=== PATIENT | female | born 1980 | race Caucasian/White ===

== ENCOUNTER → 2021-01-19 13:38 | Outpatient (BNVA) | payer OTHER, MEDICAID, SELFPAY | PROVIDERS: PCP Internal Medicine; Visit Provider Internal Medicine Cardiovascular Disease ==

== ENCOUNTER → 2021-04-12 09:11 | Outpatient (BNVA) | payer MEDICAID, SELFPAY | PROVIDERS: PCP Internal Medicine; Visit Provider Internal Medicine Cardiovascular Disease | DX: I20.1 Angina pectoris with documented spasm (principal); R00.2 Palpitations | CPT/HCPCS: 93005; 99212 ==

== ENCOUNTER 2022-08-05 04:37 | Emergency (ER) | payer OTHER, SELFPAY ==
[2022-08-05 04:39] VITALS: BP 144/68; BP 160/94; PULSE 61; PULSE 68; RESP 22; TEMP 36.7; O2SAT 97; O2SAT 99; BMI 46.6
--- NOTE | 2022-08-05 05:52 | ED_ITS ---
HPI - Back Pain/Injury General Chief Complaint: Back Pain/Injury Stated Complaint: Lower Right Side Back Pain Time Seen by Provider: 08/05/22 05:47 Source: patient Mode of arrival: EMS Limitations: no limitations History of Present Illness HPI Narrative: Patient comes emergency room complaining of right lower back cramping. Patient states that approximately 2 weeks ago, she ?twisted the wrong way? and since then she has been having right lower back pain. Patient denies radiation to the lower extremity, denies urinary/fecal incontinence/retention. Denies falling. Related Data Home Medications Medication Instructions Recorded Confirmed levothyroxine 25 mcg capsule 25 mcg PO DAILY 01/19/21 04/12/21 sertraline 50 mg tablet (Zoloft) 50 mg PO DAILY 01/19/21 04/12/21 amlodipine 5 mg tablet 5 mg PO DAILY 04/12/21 04/12/21 buspirone 5 mg tablet 5 mg PO TID 04/12/21 04/12/21 calcium carbonate 600 mg-vitamin 1 tab PO BID 04/12/21 04/12/21 D3 20 mcg (800 unit) tablet clonazepam 1 mg tablet 1 mg PO DAILY PRN anxiety 04/12/21 04/12/21 famotidine 20 mg tablet 20 mg PO BID 04/12/21 04/12/21 hydroxyzine HCl 25 mg tablet 25 mg PO TID PRN anxiety 04/12/21 04/12/21 mycophenolate mofetil 500 mg tablet 1,000 mg PO BID 04/12/21 04/12/21 prednisone 10 mg tablet 30 mg PO DAILY 04/12/21 04/12/21 Previous Rx's Medication Instructions Recorded diltiazem HCl 180 mg capsule,24 180 mg PO DAILY #30 caps 12/05/21 hr,extended release isosorbide mononitrate 30 mg 30 mg PO DAILY #90 tabs 02/12/22 tablet,extended release 24 hr cyclobenzaprine 10 mg tablet 10 mg PO TID PRN muscle spasm #7 08/05/22 tabs ketorolac 10 mg tablet 10 mg PO .B.i.d. PRN pain #7 tabs 08/05/22 Allergies Allergy/AdvReac Type Severity Reaction Status Date / Time morphine AdvReac Intermediate hypotension Verified 04/12/21 09:18 Review of Systems Review of Systems: Constitutional : No Weight loss, No Fever, No Chills, No Night Sweats, No Fatigue, No Malaise ENT/Mouth : No Hearing loss, No Ear Pain, No Nasal Congestion, No Sinus Pain, No Hoarseness, No sore throat, No Rhinorrhea, No Swallowing Difficulty Eyes: No Eye Pain, No Swelling, No Redness, No Foreign Body, No Discharge, No Vision Changes Cardiovascular : No Chest Pain, No SOB, No Dyspnea on Exertion, No Orthopnea, No Edema, No Palpitations Respiratory : No Cough, No Sputum, No Wheezing, No Smoke Exposure, No Dyspnea Gastrointestinal : No Nausea, No Vomiting, No Diarrhea, No Constipation, No abdominal Pain, No Hematochezia, No Melena Genitourinary : no irregular bleeding, No Dysuria, No Urinary Frequency, No Hematuria, No Urinary Incontinence, No Urgency, No Flank Pain, No Urinary Flow Changes, No Hesitancy Musculoskeletal : Complaining of right lower back pain/spasm in No joint pain, No Myalgias, No Joint Swelling Skin : No Skin Lesions, No rash Neuro : No Weakness, No Numbness, No Paresthesias, No Loss of Consciousness, No Dizziness, No Headache Psych : No Anxiety/Panic, No Depression, No SI/HI/AH/VH, No Social Issues, Heme/Lymph: No Bruising, No Bleeding,No Lymphadenopathy Endocrine : No Polyuria, No Polydipsia, No Temperature Intolerance PMFSH Past Medical History Medical History Anxiety Arthritis delivery delivered Coronary artery spasm Depression Heart palpitations Hypothyroid Surgical History History of cardiac cath History of tonsillectomy Family History Family History Maternal Grandfather Heart attack Social History Social History Alcohol intake: never Patient Tobacco Use Status: Former Tobacco user Smoked in Last 30 Days: No Use of substances other than those prescribed or required for medical reasons: No Advance Directives: No Advance Directives Information Provided: No Patient : No Physical Exam Vital Signs: Vital Signs: Last Vital Signs Temp 98.2 F 08/05/22 06:24 Pulse 50 08/05/22 06:24 Resp 17 08/05/22 06:24 BP 147/67 H 08/05/22 06:24 Pulse Ox 98 08/05/22 06:24 O2 Del Method Room Air 08/05/22 06:24 BMI result Body Mass Index 46.6 Const: Other: Appearance: Alert. Oriented X3. No acute distress. Eyes: Pupils equal, round and reactive to light. ENT: Pharynx normal. Neck: Normal inspection. Neck supple. No lymph nodes noted. No crepitus CVS: Normal heart rate and rhythm. Pulses normal. Normal S1 and S2 Respiratory: No respiratory distress. Breath sounds normal. No Wheezing. No rales Abdomen: Soft and nontender. No rigidity. No distention. Back: Pain to palpation over the paraspinal muscles on the right side, no flank pain Skin: Skin warm and dry. Normal skin color. Normal skin turgor. Extremities: No lower extremity edema. No Lacerations. No Rash Neuro: Oriented X 3. No motor deficit. No sensory deficit. Moving all ext remities. No slurred speech. CN 2 through 12 grossly intact Psych: calm, cooperative, normal affect Medications Administered Discontinued Medications Generic Name Dose Route Start Last Admin Trade Name Freq PRN Reason Stop Dose Admin Diazepam 2 mg 08/05/22 05:51 08/05/22 06:05 Diazepam 2 Mg Tablet PO 08/05/22 05:52 2 mg ONCE ONE Administration Ketorolac Tromethamine 60 mg 08/05/22 05:51 08/05/22 06:04 Ketorolac Tromethamine 60 Mg/2 Ml Vial IM 08/05/22 05:52 60 mg ONCE ONE Administration Medical Decision Making Medical Decision Making MDM Narrative: -discussed the physical exam with the patient, pain likely musculoskeletal. -urinalysis pending to rule out UTI/pyelo, not suspected at this time. Patient has no UTI symptoms, no fever chills, no flank pain or suprapubic pain. -patient given IM Toradol and p.o. Valium -sign-out given to Dr. Dia Discharge Plan Discharge Clinical Impression: Back spasm Patient Disposition: Home, Self-Care Instructions: Muscle Spasm (ED) Additional Instructions: Please follow-up with your primary care physician tomorrow. You may need physical therapy. If you have any worsening or new symptoms, please return to the emergency room or call 911 Prescriptions: New ketorolac 10 mg tablet 10 mg PO .B.i.d. PRN (Reason: pain) Qty: 7 0RF cyclobenzaprine 10 mg tablet 10 mg PO TID PRN (Reason: muscle spasm) Qty: 7 0RF No Action diltiazem HCl 180 mg capsule,extended release 24 hr 180 mg PO DAILY Qty: 30 5RF isosorbide mononitrate 30 mg tablet extended release 24 hr 30 mg PO DAILY Qty: 90 3RF sertraline [Zoloft] 50 mg tablet 50 mg PO DAILY levothyroxine 25 mcg capsule 25 mcg PO DAILY amlodipine 5 mg tablet 5 mg PO DAILY prednisone 10 mg tablet 30 mg PO DAILY buspirone 5 mg tablet 5 mg PO TID calcium carbonate-vitamin D3 600 mg-20 mcg (800 unit) tablet 1 tab PO BID clonazepam 1 mg tablet 1 mg PO DAILY PRN (Reason: anxiety) famotidine 20 mg tablet 20 mg PO BID mycophenolate mofetil 500 mg tablet 1,000 mg PO BID hydroxyzine HCl 25 mg tablet 25 mg PO TID PRN (Reason: anxiety)
[2022-08-05] MEDS: Ketorolac Tromethamine 60 MG/2 ML VIAL IM (06:04)
[2022-08-05] MEDS: diazePAM 2 MG TABLET PO (06:05)
--- NOTE | 2022-08-05 06:08 | PC.NURSE ---
pt medicated according to mar for 12/25 pain. pt reminded by this rn need for urine sample pt would like to see if pain medication could help pain before trying to use restroom
[2022-08-05 06:24] VITALS: BP 147/67; PULSE 50; RESP 17; TEMP 36.8; O2SAT 98
[2022-08-05 06:55] LABS: Appearance Urine Clear; Color Urine Yellow; Glucose Urine UA Negative (Negative); Leukocyte Esterase Urine Negative (Negative); Nitrite Urine Negative (Negative); UPreg QC Valid YES; Urine Blood Negative (Negative); Urine Ketones Negative (Negative); Urine Pregnancy NEGATIVE (NEGATIVE); Urine Protein Negative (Neg-Trace)
[2022-08-05 07:00] LABS: Bacteria Urine None Seen (None Seen); Hyaline Casts Urine 0-2 /LPF (0-2); RBC Urine 0-2 /HPF (0-2); Squamous Epithelial Cell Urine 0-2 /HPF (0-2); WBC Urine 0-5 /HPF (0-5)
[2022-08-05 07:18] VITALS: BP 125/74; PULSE 53; RESP 16; TEMP 36.5; O2SAT 100
== END 2022-08-05 07:39 | disposition home or self-care (01) ==
PROVIDERS: Emergency Medicine; Emergency Provider Emergency Medicine Emergency Medical Services; PCP Nurse Practitioner Family
DX: M54.50 Low back pain, unspecified (principal); M62.838 Other muscle spasm; Z79.899 Other long term (current) drug therapy
CPT/HCPCS: 81001; 81025; 96372; 99283; 99284; J1885

== ENCOUNTER 2024-05-19 14:16 | Emergency (ER) | payer OTHER, SELFPAY ==
--- NOTE | ~2024-05-19 | XR_ITS ---
EXAMINATION: XR CERVICAL SPINE CLINICAL INFORMATION: pain COMPARISON: None available. TECHNIQUE: 3 views of the cervical spine were obtained. FINDINGS: Craniocervical junction is intact. No acute cortical disruption or gross malalignment. No subcutaneous the physiologic lordosis. No lytic or blastic lesions. Calcifications in the anterior intervertebral disc C5-6 and C6-7. Upper airway is patent. XR/XR cervical spine 3V IMPRESSION: Mild cervical spondylosis C5-6 and C6-7. Electronically signed by: Jimy Andres MD 05/19/2024 03:23 PM TOMMIE JEFFRIES
[2024-05-19 14:43] VITALS: BP 133/68; PULSE 63; RESP 16; TEMP 37; O2SAT 100; BMI 35.8
--- NOTE | 2024-05-19 14:55 | ED.NECK ---
HPI - Neck Pain/Injury General Chief Complaint: Neck Pain/Injury Stated Complaint: Neck pain/stiffness, nausea Time Seen by Provider: 05/19/24 23:39 Source: patient Mode of arrival: ambulatory Limitations: no limitations History of Present Illness ED Provider: Dr. Peter Grant HPI Narrative: 43-year-old female with a history of MT, polymyositis, lupus who presents emergency department for evaluation neck pain, muscle spasm and difficulty moving her head Secondary to pain. Patient states that she developed pain in her neck 1 night prior to evaluation. She states that she did not have any injury during the day that she recalls. She states she is having difficulty sleeping secondary to her pain. She describes the pain is a constant, throbbing pain in the left side of her neck but the pain is also now radiating to the back of her neck into her throat. She states that she is having difficulty moving her neck secondary to pain and spasm of the muscles. She states she also has difficulty swallowing but she has had no difficulty eating, drinking or swallowing her saliva. She denied numbness or weakness in her upper extremities. She denied fever, chills, chest pain, shortness of breath. She states she has had some associated nausea but no vomiting. Related Data Home Medications ?Medication ?Instructions ?Recorded ?Confirmed levothyroxine 25 mcg capsule 25 mcg PO DAILY 01/19/21 04/12/21 sertraline 50 mg tablet (Zoloft) 50 mg PO DAILY 01/19/21 04/12/21 amlodipine 5 mg tablet 5 mg PO DAILY 04/12/21 04/12/21 buspirone 5 mg tablet 5 mg PO TID 04/12/21 04/12/21 calcium 600 mg (as 1 tab PO BID 04/12/21 04/12/21 carbonate)-vitamin D3 20 mcg (800 unit) tablet clonazepam 1 mg tablet 1 mg PO DAILY PRN anxiety 04/12/21 04/12/21 famotidine 20 mg tablet 20 mg PO BID 04/12/21 04/12/21 hydroxyzine HCl 25 mg tablet 25 mg PO TID PRN anxiety 04/12/21 04/12/21 mycophenolate mofetil 500 mg tablet 1,000 mg PO BID 04/12/21 04/12/21 prednisone 10 mg tablet 30 mg PO DAILY 04/12/21 04/12/21 Previous Rx's ?Medication ?Instructions ?Recorded diltiazem HCl 180 mg capsule,24 180 mg PO DAILY #30 caps 12/05/21 hr,extended release isosorbide mononitrate 30 mg 30 mg PO DAILY #90 tabs 02/12/22 tablet,extended release 24 hr cyclobenzaprine 10 mg tablet 10 mg PO TID PRN muscle spasm #7 08/05/22 tabs ketorolac 10 mg tablet 10 mg PO .B.i.d. PRN pain #7 tabs 08/05/22 cyclobenzaprine 10 mg tablet 10 mg PO TID PRN pain, muscle 05/20/24 spasm #15 tabs ferrous sulfate 325 mg (65 mg 325 mg PO DAILY 30 days #30 tabs 05/20/24 iron) tablet ketorolac 10 mg tablet 10 mg PO Q6H PRN pain 5 days #20 05/20/24 tabs Allergies Allergy/AdvReac Type Severity Reaction Status Date / Time morphine AdvReac Intermediate hypotension Verified 05/19/24 14:47 Review of Systems Review of Systems: Yes all other systems are reviewed and are negative [facility] Past Medical History Medical History Anxiety Arthritis delivery delivered Coronary artery spasm Depression Heart palpitations Hypothyroid Surgical History History of cardiac cath History of tonsillectomy Family History Family History Maternal Grandfather Heart attack Social History Social History Alcohol intake: never Patient Tobacco Use Status: Former Tobacco user Smoked in Last 30 Days: No Use of substances other than those prescribed or required for medical reasons: No Advance Directives: No Advance Directives Information Provided: Yes Patient : No Physical Exam Vital Signs: Vital Signs: Last Vital Signs Temp 98.0 F 05/20/24 00:51 Pulse 84 05/20/24 00:51 Resp 16 05/20/24 00:51 BP 142/84 H 05/20/24 00:51 Pulse Ox 99 05/20/24 00:51 O2 Del Method Room Air 05/20/24 00:51 BMI result Body Mass Index 35.8 Vital signs revealed an elevated blood pressure otherwise unremarkable. Exam: General: Awake, alert in no distress Head: Normocephalic, atraumatic EENT: PERRL, Lids normal, sclera normal, conjunctiva normal, nose normal , ears normal, throat without erythema or exudates , no trismus, she is able to open her mouth widely without any difficulty Neck: Patient has tenderness with palpation of her trapezius muscles bilaterally with spasm of these muscles, she has no tenderness palpation over her trachea. there is no erythema to the skin of her neck or increased warmth. Patient does have limited lateral rotation and difficulty putting her ear torso shoulder left greater than right. Lung: breath sounds symmetric, no wheezing, rales or rhonchi Heart: regular rate and rhythm, normal S1, S2 no murmurs or rubs Abdomen: soft, non-tender, nondistended, normal bowel sounds Neuro: Awake, alert, oriented, normal speech, cranial nerves intact, moves all extremities symmetrically Psych: Pleasant, cooperative Course Course Course Narrative: This is an RME: Additional HPI, ROS, PE not included below will be deferred to primary provider. RME assessment and note performed by: Layla Ordonez PA-C This is a 43-year-old female, With a history of myositis, who presents emergency department with complaints of stiff neck. states that she awoke this morning and felt as though her neck was stiff, and has had a warm sensation. She was tried he denies without relief. She was able to touch chin to chest, she was afebrile, no recent illness. No recent falls. Plan: labs, imaging, further ER evaluation needed. Medications Administered Discontinued Medications Generic Name Dose Route Start Last Admin Trade Name Teddyq PRN Reason Stop Dose Admin Acetaminophen 975 mg 05/19/24 20:53 05/19/24 21:23 Acetaminophen 325 Mg Tablet PO 05/19/24 20:54 975 mg ONCE ONE Administration Ketorolac Tromethamine 60 mg 05/20/24 00:19 05/20/24 00:45 Ketorolac Tromethamine 60 Mg/2 Ml Vial IM 05/20/24 00:20 60 mg ONCE ONE Administration Medical Decision Making Medical Decision Making MDM Narrative: 43-year-old female MT, polymyositis, lupus who presents emergency department for evaluation neck pain, muscle spasm and difficulty moving her head x1- 2 days. patient does not recount any injury prior to onset of her pain. She had associated nausea but otherwise review of systems are negative. Vital signs revealed a slight elevation of blood pressure. Physical examination did reveal bilateral trapezius muscle tenderness with spasm of these muscles left greater than right in limited range of motion of her neck secondary to pain and spasm. Differential diagnosis: Includes but is not limited to neck sprain, neck strain, meningitis, cervical radiculopathy, electrolyte abnormalities, anemia, Course: My independent interpretation patient's laboratory weight saldaña as follows: Chronic microcytic anemia with an H&H of 9.9 and 31.5. MCV was 79.7. CMP was normal. CRP was normal. CRP was slightly elevated at 33. C-spine x-rays did not reveal any significant abnormalities on my interpretation. The radiologist did note mild cervical spondylosis C5-6 and C6-7 and calcifications in the anterior intervertebral discs at C5-6 and C6-7 but I do not thing that these findingsare related to her pain. I did discuss these findings with the patient. The patient's presentation physical findings are consistent with musculoskeletal sprain of her neck. Patient states that she was having significant pain, 8/10 at the time my evaluation. Patient states that she has had relief muscle pain in the past with IM Toradol therefore she was given Toradol 10 mg IM here in the emergency department. The patient was given prescriptions for Toradol 10 mg 4 times a day as needed for pain and Flexeril 10 mg 3 times a day as needed for pain and spasm. She was given printed and verbal instructions and discharged home. Admission/Observation Consideration of admission/observation: Escalation of care including admission/observation considered ( yes) Lab Data MDM Lab Attestation statement: I reviewed the patient's lab results. 05/19/24 17:33 05/19/24 17:33 Labs: Lab Results 05/19/24 Range/Units 17:33 WBC 5.8 (4.8-10.8) X10*3/uL RBC 3.95 L (4.20-5.50) X10*6/uL Hgb 9.9 L (12.0-16.0) g/dl Hct 31.5 L (37.0-47.0) % MCV 79.7 L (80.0-98.0) fL MCH 25.1 L (27.0-33.0) pg MCHC 31.4 (31.0-35.0) g/dl RDW 16.8 H (11.0-16.0) % Plt Count 406 H (160-400) X10*3/uL MPV 9.5 (9.4-12.3) fL Immature Gran % (Auto) 0.2 (0.0-0.4) % Neut % (Auto) 54.4 (45-73) % Lymph % (Auto) 32.2 (20-40) % [place] % (Auto) 11.3 H (2-11) % Eos % (Auto) 1.2 (0-4) % Baso % (Auto) 0.7 (0-2) % Lymph # (Auto) 1.9 (1.2-4.9) X10*3/uL [place] # (Auto) 0.7 (0.1-1.2) X10*3/uL Eos # (Auto) 0.1 (0.0-0.4) X10*3/uL Baso # (Auto) 0.0 (0.0-0.2) X10*3/uL Abs Immat Gran (auto) 0.01 (0.00-0.03) X10*3/uL Absolute Neuts (auto) 3.2 (2.0-8.3) x10*3/uL Absolute Nucleated RBC 0.000 (0.0-0.012) X10*3/uL Nucleated RBC % (auto) 0.0 (0.0-0.2) /100WBC ESR 33 H (0-20) MM/HR Sodium 138 (135-145) mmol/L Potassium 4.6 (3.3-5.1) mmol/L Chloride 108 (96-108) mmol/L Carbon Dioxide 24 (22-29) mmol/L Anion Gap 11 L (12-20) BUN 21 H (9-16) mg/dL Creatinine 0.73 (0.5-1.4) mg/dL Estim Creat Clear Calc 108.5 Estimated GFR > 60 Random Glucose 92 (60-115) mg/dL Calcium 8.9 (8.4-10.2) mg/dL Total Bilirubin 0.3 (0.0-1.0) mg/dL AST 24 (5-31) U/L ALT 8 (0-31) U/L Alkaline Phosphatase 67 (39-117) U/L C-Reactive Protein 0.27 (< or = 0.50) mg/dL Total Protein 8.3 H (6.5-8.0) g/dL Albumin 4.0 (3.5-5.0) g/dL Independent Interpretation I performed an independent interpretation of an: Plain X-Ray Interpretation: My independent interpretation the patient's C-spine x-rays is as follows: No acute fracture or significant abnormality seen by me Radiology Impression Discussion of test interpretation with radiology: I have reviewed the radiologist's reading. Radiologist Impression: EXAMINATION: XR CERVICAL SPINE CLINICAL INFORMATION: pain COMPARISON: None available. TECHNIQUE: 3 views of the cervical spine were obtained. FINDINGS: Craniocervical junction is intact. No acute cortical disruption or gross malalignment. No subcutaneous the physiologic lordosis. No lytic or blastic lesions. Calcifications in the anterior intervertebral disc C5-6 and C6-7. Upper airway is patent. IMPRESSION: Mild cervical spondylosis C5-6 and C6-7. Electronically signed by: Jimy Andres MD 05/19/2024 03:23 PM Prescription Management I considered prescription management with: Pain Medication ( Toradol) and Other ( anti spasmodic: Flexeril) Chronic Conditions Patient?s care impacted by: Other ( lupus) Discharge Plan Discharge Clinical Impression: Muscle spasm Cervical sprain Qualifiers: Encounter type: initial encounter Qualified Code(s): S13.9XXA - Sprain of joints and ligaments of unspecified parts of neck, initial encounter Patient Disposition: Home, Self-Care Instructions: Muscle Spasm (ED), Acute Neck Pain (ED) Additional Instructions: Your blood work revealed a mild anemia which may be consistent with your lupus or low iron. I want you to take an iron supplement, ferrous sulfate 325 mg once a day and follow-up with your doctor in 1-2 months to repeat your blood work to see if you are still anemic. Your inflammatory markers were normal which is reassuring. The x-ray of your neck did not reveal any significant abnormalities to explain your pain. Your symptoms are consistent with an injury to the neck muscles causing inflammation and spasm. Take Toradol 10 mg pills, 1 pill 3 times a day as needed for pain. Take Flexeril (cyclobenzaprine) 10 mg pills, 1 pill every 6-8 hours as needed for pain or spasm. ?This medication will make you sleepy. ?Do not drive or work while taking this medication. Apply heating pad on low to your muscles for 15 minutes 4 to 6 times a day to help reduce your pain. Follow-up with your doctor in 2 days. Please return to the emergency department if your symptoms get worse or if you develop any symptoms that are concerning to you. Prescriptions: New cyclobenzaprine 10 mg tablet 10 mg PO TID PRN (Reason: pain, muscle spasm) Qty: 15 0RF ferrous sulfate 325 mg (65 mg iron) tablet 325 mg PO DAILY 30 Days Qty: 30 0RF ketorolac 10 mg tablet 10 mg PO Q6H PRN (Reason: pain) 5 Days Qty: 20 0RF No Action diltiazem HCl 180 mg capsule,extended release 24 hr 180 mg PO DAILY Qty: 30 5RF isosorbide mononitrate 30 mg tablet extended release 24 hr 30 mg PO DAILY Qty: 90 3RF ketorolac 10 mg tablet 10 mg PO .B.i.d. PRN (Reason: pain) Qty: 7 0RF cyclobenzaprine 10 mg tablet 10 mg PO TID PRN (Reason: muscle spasm) Qty: 7 0RF sertraline [Zoloft] 50 mg tablet 50 mg PO DAILY levothyroxine 25 mcg capsule 25 mcg PO DAILY amlodipine 5 mg tablet 5 mg PO DAILY prednisone 10 mg tablet 30 mg PO DAILY buspirone 5 mg tablet 5 mg PO TID calcium carbonate-vitamin D3 600 mg-20 mcg (800 unit) tablet 1 tab PO BID clonazepam 1 mg tablet 1 mg PO DAILY PRN (Reason: anxiety) famotidine 20 mg tablet 20 mg PO BID mycophenolate mofetil 500 mg tablet 1,000 mg PO BID hydroxyzine HCl 25 mg tablet 25 mg PO TID PRN (Reason: anxiety) Interventions: ED Discharge Assessment Last Done: 05/20/24 00:51 Discharge Date/Time: 05/20/24 00:52 Print Language: Persian
[2024-05-19 17:38] LABS: MANUAL DIFF FLAG NO
[2024-05-19 17:43] LABS: Basophils Percent Auto 0.7 % (0-2); Eosinophils Absolute Auto 0.1 X10*3/uL (0.0-0.4); Eosinophils Percent Auto 1.2 % (0-4); Hematocrit 31.5 % (37.0-47.0); Hemoglobin 9.9 g/dl (12.0-16.0); Imm Gran Abs Auto 0.01 X10*3/uL (0.00-0.03); Imm Gran Pct Auto 0.2 % (0.0-0.4); Lymphocytes Absolute Auto 1.9 X10*3/uL (1.2-4.9); Lymphocytes Percent Auto 32.2 % (20-40); Mean Corpuscular HGB Conc 31.4 g/dl (31.0-35.0); Mean Corpuscular Hemoglobin 25.1 pg (27.0-33.0); Mean Corpuscular Volume 79.7 fL (80.0-98.0); Mean Platelet Volume 9.5 fL (9.4-12.3); Monocytes Absolute Auto 0.7 X10*3/uL (0.1-1.2); Monocytes Percent Auto 11.3 % (2-11); Neutrophils Absolute Auto 3.2 x10*3/uL (2.0-8.3); Neutrophils Percent Auto 54.4 % (45-73); Platelet Count 406 X10*3/uL (160-400); Red Blood Count 3.95 X10*6/uL (4.20-5.50); Red Cell Distribution Width 16.8 % (11.0-16.0); White Blood Count 5.8 X10*3/uL (4.8-10.8)
[2024-05-19 18:04] LABS: Alanine Aminotransferase 8 U/L (0-31); Alkaline Phosphatase 67 U/L (39-117); Anion Gap 11 (12-20); Aspartate Amino Transferase 24 U/L (5-31); Bilirubin Total 0.3 mg/dL (0.0-1.0); Blood Urea Nitrogen 21 mg/dL (9-16); C Reactive Protein 0.27 mg/dL (< or = 0.50); Calcium 8.9 mg/dL (8.4-10.2); Carbon Dioxide 24 mmol/L (22-29); Chloride 108 mmol/L (96-108); Creatinine Clr Calc Pharmacy 108.5; Estimated Glomerular Filt Rate > 60; Glucose Random 92 mg/dL (60-115); Potassium 4.6 mmol/L (3.3-5.1); Sodium 138 mmol/L (135-145); Total Protein 8.3 g/dL (6.5-8.0)
[2024-05-19 18:52] LABS: Erythrocyte Sedimentation Rate 33 MM/HR (0-20)
[2024-05-19 21:22] VITALS: BP 154/92; PULSE 95; RESP 16; TEMP 36.4; O2SAT 97
[2024-05-19] MEDS: Acetaminophen 325 MG TABLET 975 MG PO (21:23)
[2024-05-20] MEDS: Ketorolac Tromethamine 60 MG/2 ML VIAL IM (00:45)
[2024-05-20 00:51] VITALS: BP 142/84; PULSE 84; RESP 16; TEMP 36.7; O2SAT 99
== END 2024-05-20 00:52 | disposition home or self-care (01) ==
PROVIDERS: Physician Assistant Medical; Emergency Provider Emergency Medicine Emergency Medical Services; PCP Nurse Practitioner Family
DX: S13.9XXA Sprain of joints and ligaments of unspecified parts of neck, initial encounter (principal); M54.2 Cervicalgia; M62.838 Other muscle spasm; R13.10 Dysphagia, unspecified; R11.0 Nausea; M54.50 Low back pain, unspecified; X58.XXXA Exposure to other specified factors, initial encounter; Y93.9 Activity, unspecified; Y92.9 Unspecified place or not applicable; Y99.8 Other external cause status; Z79.899 Other long term (current) drug therapy; Z87.891 Personal history of nicotine dependence
CPT/HCPCS: 36415; 72040; 80053; 85025; 85652; 86140; 96372; 99284; J1885

== ENCOUNTER → 2024-05-19 14:57 | Outpatient (BNV) | payer OTHER, SELFPAY | PROVIDERS: PCP Nurse Practitioner Family; Visit Provider Radiology Diagnostic Radiology | DX: M54.2 Cervicalgia (principal) | CPT/HCPCS: 72040 ==